=== PATIENT | female | born 1945 | race Caucasian/White ===

== ENCOUNTER → 2017-02-24 | Outpatient (CLI) | payer BC | LOC: HEART 5 01-24 11:00 | DX: R07.9 Chest pain, unspecified (principal) | CPT/HCPCS: 93306 ==

== ENCOUNTER → 2017-07-08 | Outpatient (CLI) | payer BC | LOC: HEART 5 07:30 | DX: I25.10 Atherosclerotic heart disease of native coronary artery without angina pectoris (principal); R07.9 Chest pain, unspecified; R94.39 Abnormal result of other cardiovascular function study | CPT/HCPCS: 78452; A9502 ==

== ENCOUNTER → 2020-12-06 | Outpatient (CLI) | payer MEDICARE | LOC: EXRD 13:46 | DX: Z12.11 Encounter for screening for malignant neoplasm of colon (principal); F17.210 Nicotine dependence, cigarettes, uncomplicated; M85.88 Other specified disorders of bone density and structure, other site | CPT/HCPCS: 77080 ==

== ENCOUNTER → 2020-12-19 | Outpatient (CLI) | payer MEDICARE | LOC: KOH-I 12-11 09:30 | DX: F17.210 Nicotine dependence, cigarettes, uncomplicated (principal); R91.1 Solitary pulmonary nodule | CPT/HCPCS: 71271 ==

== ENCOUNTER → 2021-01-08 | Outpatient (CLI) | payer MEDICARE | LOC: ECHO 08:54 | DX: R07.9 Chest pain, unspecified (principal); R60.9 Edema, unspecified; E78.5 Hyperlipidemia, unspecified; E11.9 Type 2 diabetes mellitus without complications; I11.9 Hypertensive heart disease without heart failure; I35.8 Other nonrheumatic aortic valve disorders; R00.1 Bradycardia, unspecified | CPT/HCPCS: ECHO; 78452; 93017; 93306; A9502; J2785 ==

== ENCOUNTER 2021-12-23 11:18 | Emergency (ER) | payer MEDICARE ==
[2021-12-23] MEDS ORDERED: CITRATE OF MAG296 ML PO (12:38)
== END 2021-12-23 12:45 | disposition home or self-care (01) ==
LOC: ER1 11:18
DX: K59.00 Constipation, unspecified (principal); E11.9 Type 2 diabetes mellitus without complications; I10 Essential (primary) hypertension
CPT/HCPCS: 99283